=== PATIENT | male | born 1980 ===

== ENCOUNTER 2018-09-28 16:44 | Emergency (ER) | payer SELFPAY ==
[2018-09-28] MEDS ORDERED: Alum-Mag Hydrox-Simethicone Susp (30 mL) PO ONE (17:23)
--- NOTE | 2018-09-28 17:44 | ED PDOC ---
HPI: Abdomen Additional History Per: Patient Additional Complaint(s): 38 y/o M with no significant PMH comes to the ER c/o 1 week hx of epigastric pain. As per patient, pain is 5/10, sharp, constant which gets 8/10 after food and in morning, radiating to left, right and back after food. no alleviating factors, denies any nausea, vomiting, fever, diarrhea, palpitations or blurred vision. Reports sour taste in mouth. + recent travel to [facility], no sick contact PMD: None PMH: Denies PSH: Denies Allg: NKDA Meds: None SH: 1 pack/day cig, social alcohol FH: Denies <Opal Shane - Last Filed: 09/28/18 18:39> <Christi Mead - Last Filed: 09/28/18 23:47> Time Seen by Provider: 09/28/18 17:10 Chief Complaint (Nursing): Abdominal Pain Supervising Attending Note - Supervising Attending Note The Documented history was done by the: Physician District Plant Supervisor The documented physical exam was done by the: Physician District Plant Supervisor - Attestation: I have personally seen and examined this patient.: Yes I have fully participated in the care of the patient.: Yes I have reviewed all pertinent clinical information: Yes <Christi Mead - Last Filed: 09/28/18 23:47> Past Medical History Vital Signs: Last Vital Signs Temp 98.1 F 09/28/18 17:05 Pulse 88 09/28/18 17:05 Resp 16 09/28/18 17:05 BP 111/71 09/28/18 17:05 Pulse Ox 98 09/28/18 17:05 - Family History Family History: States: No Known Family Hx <Opal Shane - Last Filed: 09/28/18 18:39> Vital Signs: Last Vital Signs Temp 98.3 F 09/28/18 18:47 Pulse 66 09/28/18 18:47 Resp 17 09/28/18 18:47 BP 103/67 09/28/18 18:47 Pulse Ox 100 09/28/18 18:47 <Christi Mead - Last Filed: 09/28/18 23:47> - Home Medications Home Medications: Ambulatory Orders Medication Instructions Recorded Famotidine [Pepcid] 40 mg PO DAILY #30 tablet 09/28/18 - Allergies Allergies/Adverse Reactions: Allergies Allergy/AdvReac Type Severity Reaction Status Date / Time No Known Allergies Allergy Verified 09/28/18 17:05 Review of Systems Constitutional: Negative for: Fever, Chills, Sweats Eyes: Negative for: Pain, Vision Change ENT: Negative for: Ear Pain, Ear Discharge, Nose Pain, Nose Discharge Cardiovascular: Negative for: Chest Pain, Palpitations, Orthopnea, Paroxysmal Noc. Dyspnea Respiratory: Negative for: Cough, Shortness of Breath, Hemoptysis Gastrointestinal: Positive for: Abdominal Pain. Negative for: Nausea, Vomiting, Diarrhea Genitourinary Male: Negative for: Dysuria, Frequency, Incontinence Musculoskeletal: Negative for: Neck Pain Skin: Negative for: Rash Neurological: Negative for: Weakness, Numbness Psych: Negative for: Anxiety <Opal Shane - Last Filed: 09/28/18 18:39> Physical Exam - Physical Exam Appears: Positive for: No Acute Distress Skin: Positive for: Normal Color Eye Exam: Positive for: Normal appearance ENT: Positive for: Normal ENT Inspection Neck: Positive for: Normal Cardiovascular/Chest: Positive for: Regular Rate, Rhythm, Chest Non Tender. Negative for: Bradycardia, Tachycardia Respiratory: Positive for: Normal Breath Sounds. Negative for: Decreased Breath Sounds, Accessory Muscle Use, Crackles, Stridor, Wheezing Gastrointestinal/Abdominal: Positive for: Normal Exam, Bowel Sounds (present ), Soft. Negative for: Tenderness, Organomegaly, Mass, Distended, Guarding, Rebound, Hernia, Asicites Back: Positive for: Normal Inspection. Negative for: L CVA Tenderness, R CVA Tenderness Extremity: Positive for: Normal ROM. Negative for: Tenderness, Pedal Edema Neurological/Psych: Positive for: Awake, Alert, Normal Tone, Oriented, apron trimmer II- XII. Negative for: Lethargic <Opal Shane - Last Filed: 09/28/18 18:39> - Laboratory Results Result Diagrams: 09/28/18 17:40 09/28/18 17:40 - ECG O2 Sat by Pulse Oximetry: 98 - Progress ED Course And Treament: A/P: 38 y/o Male with epigastric pain/PUD. - CBC - CMP - Lipase - Pepcid 20 mg PO - Maalox 30ml PO - Lidocaine 10ml PO - EKG Case discussed with Dr. Mead, agrees with plan Patient was reexamined and No pain Re-evaluation Time: 18:34 Condition: Improved <Opal Shane - Last Filed: 09/28/18 18:39> - Laboratory Results Result Diagrams: 09/28/18 17:40 09/28/18 17:40 Lab Results: Total Bilirubin 0.4 mg/dl (0.2-1.3) 09/28/18 17:40 AST 36 U/L (17-59) 09/28/18 17:40 ALT 62 U/L (21-72) 09/28/18 17:40 Alkaline Phosphatase 55 U/L (38-126) 09/28/18 17:40 Total Protein 7.7 G/DL (6.3-8.2) 09/28/18 17:40 Albumin 4.3 g/dL (3.5-5.0) 09/28/18 17:40 Globulin 3.4 gm/dL (2.2-3.9) 09/28/18 17:40 Albumin/Globulin Ratio 1.3 (1.0-2.1) 09/28/18 17:40 Lipase 159 U/L (23-300) 09/28/18 17:40 <Christi Mead - Last Filed: 09/28/18 23:47> Medical Decision Making Medical Decision Making: Gastritis/PUD <Opal Shane - Last Filed: 09/28/18 18:39> Disposition - Patient ED Disposition Is Patient to be Admitted: No - Disposition Disposition: Routine/Home Disposition Time: 18:35 <Opal Shane - Last Filed: 09/28/18 18:39> <Christi Mead - Last Filed: 09/28/18 23:47> - Clinical Impression Clinical Impression: PUD (peptic ulcer disease), Gastritis - Disposition Referrals: [facility] [Provider Group] Condition: STABLE Additional Instructions: F/u with PMD in 2-3 days Return to ER of symptoms get worse or not improved in 2-3 days Prescriptions: Famotidine [Pepcid] 40 mg PO DAILY #30 tablet Instructions: Peptic Ulcers, Gastritis Forms: [employer] (Bolivian) Print Language: LATVIAN
[2018-09-28 17:47] LABS: BASO # 0.1 K/uL (0.0-0.2); BASO % 1.2 % (0.0-2.0); EOS % 0.3 % (0.0-4.0); HEMOGLOBIN 15.8 g/dL (12.0-18.0); LYMPH # 1.8 K/uL (1.0-4.3); LYMPH % 32.9 % (20.0-40.0); MEAN CELL VOLUME 94.6 fl (80.0-94.0); MEAN CORPUSCULAR HEMOGLOBIN 32.1 pg (27.0-31.0); MEAN CORPUSCULAR HGB CONC 33.9 g/dL (33.0-37.0); MEAN PLATELET VOLUME 7.6 fl (7.2-11.7); MONO # 0.5 K/uL (0.0-0.8); MONO % 8.8 % (0.0-10.0); NEUT # 3.1 K/uL (1.8-7.0); NEUT % 56.8 % (50.0-75.0); NRBC % 0.1 % (0.0-0.0); RBC 4.92 Mil/uL (4.40-5.90); RED CELL DISTRIBUTION WIDTH 12.8 % (11.5-14.5); WHITE BLOOD COUNT 5.5 K/uL (4.8-10.8)
[2018-09-28] MEDS ORDERED: Alum-Mag Hydrox-Simethicone Susp (30 mL) ONE (17:58)
[2018-09-28 18:00] LABS: ALB/GLOB RATIO 1.3 (1.0-2.1); ALBUMIN 4.3 g/dL (3.5-5.0); ALT/SGPT 62 U/L (21-72); AST/SGOT 36 U/L (17-59); BLOOD UREA NITROGEN 17 mg/dl (9-20); CALCIUM 9.5 mg/dL (8.4-10.2); GFR NON-AFRICAN AMERICAN > 60; LIPASE 159 U/L (23-300)
[2018-09-28 18:48] VITALS: BP 103/67; PULSE 66; RESP 17; TEMP 98.3; O2SAT 100
--- NOTE | 2018-09-28 20:29 | CARD ---
APPROVED REPORT Date of service: 09/28/2018 EKG Measurement Heart [id number] <Conclusion> Normal sinus rhythm Normal ECG
== END 2018-09-28 18:47 | disposition home or self-care (01) ==
LOC: H.ER 16:44
DX: K27.9 Peptic ulcer, site unspecified, unspecified as acute or chronic, without hemorrhage or perforation (principal); K29.70 Gastritis, unspecified, without bleeding